=== PATIENT | male | born 1980 | race American Indian/Alaskan Native ===

== ENCOUNTER 2025-01-16 01:36 | Emergency (ER) | payer MEDICAID, OTHER ==
[2025-01-16 01:47] LABS: BASOPHILS ABSOLUTE AUTO 0.03 K/uL (0.00-0.10); BASOPHILS PERCENT AUTO 0.3 % (0.1-1.3); EOSINOPHILS ABSOLUTE AUTO 0.25 K/uL (0.00-0.40); EOSINOPHILS PERCENT AUTO 2.9 % (0.0-5.4); IMMATURE GRAN PERCENT AUTO 0.1 % (0.0-0.7); LYMPHOCYTES ABSOLUTE AUTO 2.29 K/uL (0.8-3.3); LYMPHOCYTES PERCENT AUTO 26.5 % (11.4-47.7); MONOCYTES ABSOLUTE AUTO 0.88 K/uL (0.20-0.90); MONOCYTES PERCENT AUTO 10.2 % (3.3-12.6); NEUTROPHILS ABSOLUTE AUTO 5.18 K/uL (1.0-7.6); NEUTROPHILS PERCENT AUTO 60.0 % (40.0-78.1); PLATELET COUNT,PLT 384 K/uL (130-375); RED BLOOD CELL COUNT 5.09 M/uL (4.14-5.76); WHITE BLOOD CELL COUNT,WBC 8.6 K/uL (3.2-11.0)
[2025-01-16] MEDS: diphenhydrAMINE 50 MG/ML SDV IVPUSH ONE (01:50)
[2025-01-16 01:51] LABS: IMMATURE GRAN ABSOLUTE AUTO 0.01 K/uL (0.00-0.23)
[2025-01-16 02:10] LABS: A/G RATIO 1.0 (1.2-2.2); ALANINE AMINOTRANSFERASE,ALT 47 U/L (12-78); ASPARTATE AMNIOTRANSFERASE,AST 41 U/L (15-37); BILIRUBIN TOTAL 0.6 mg/dL (0.2-1.0); BLOOD UREA NITROGEN,BUN 21 mg/dL (7-18); CARBON DIOXIDE,CO2 25 mmol/L (21-32); CHLORIDE,CL 102 mmol/L (100-108); CREATININE 1.3 mg/dL (0.8-1.3); EST CRCL DRUG DOSING (CG) 73.31 mL/min; ESTIMATED GFR 69 mL/min (>60); GLUCOSE RANDOM 101 mg/dL (74-106); POTASSIUM,K 3.4 mmol/L (3.6-5.2); PROTEIN TOTAL,TP 7.9 g/dL (6.4-8.2); SODIUM,NA 139 mmol/L (140-148)
== END 2025-01-16 03:33 | disposition home or self-care (01) ==
LOC: JP.ED 01:36
DX: F15.10 Other stimulant abuse, uncomplicated (principal); F10.129 Alcohol abuse with intoxication, unspecified; Y90.0 Blood alcohol level of less than 20 mg/100 ml; Z79.899 Other long term (current) drug therapy
CPT/HCPCS: 36415; 71045; 74018; 80053; 80143; 80179; 80307; 85025; 96374; 96375; 99284; J1200; J1790